=== PATIENT | female | born 1965 | race Caucasian/White ===

== ENCOUNTER 2024-01-17 06:45 | Day surgery (SDC) | payer MEDICARE, MEDICAID ==
[~2024-01-17] VITALS: Ht 160 cm; Wt 123.2 kg
[~2024-01-17 06:45] MED LIST: RINGERS SOLUTION,LACTATED 1,000 ML IV ONE
[2024-01-17] MEDS ORDERED: RINGERS SOLUTION,LACTATED 1,000 ML IV ONE (06:50)
[2024-01-17 08:38] LABS: BASOPHILS % (AUTO) 1.3 % (0.0-2.0); EOSINOPHILS % (AUTO) 1.6 % (1.0-6.0); HEMATOCRIT 37.7 % (36-46); HEMOGLOBIN 12.5 g/dL (12.0-16.0); LYMPHOCYTES % (AUTO) 32.9 % (22.0-44.0); MEAN CORPUSCULAR HEMOGLOBIN 30.4 pg (26.0-34.0); MEAN CORPUSCULAR HGB CONC 33.1 G/dL (31.0-37.0); MEAN CORPUSCULAR VOLUME 92 fL (80-100); MONOCYTES # (AUTO) 1.1 K/uL (0.1-1.0); MONOCYTES % (AUTO) 12.4 % (2.0-9.0); NEUTROPHILS # (AUTO) 4.7 K/uL (1.8-7.7); NEUTROPHILS % (AUTO) 51.8 % (40.0-70.0); PLATELET COUNT (AUTO) 291 K/uL (150-450); RED CELL DISTRIBUTION WIDTH 13.7 % (11.5-14.5); WHITE BLOOD COUNT (AUTO) 9.1 K/uL (4.5-11.0)
[2024-01-17 08:46] LABS: ANION GAP 9 mmol/L (8-16); CALCIUM, TOTAL 9.3 mg/dL (8.8-10.5); CARBON DIOXIDE 26 mmol/L (22-29); CHLORIDE 105 mmol/L (98-107); CREATININE 0.69 mg/dL (0.60-1.30); GLOMERULAR FILTR. RATE CALC > 60 mL/min (>60); GLUCOSE,RANDOM 98 mg/dL (70-110); POTASSIUM 3.9 mmol/L (3.5-5.1); SODIUM SERUM 140 mmol/L (136-145); UREA NITROGEN, BLOOD 15 mg/dL (7-18)
[2024-01-17 08:52] LABS: ALANINE AMINOTRANSFERASE 31 U/L (12-78); ALBUMIN 3.4 g/dL (3.4-5.0); ALKALINE PHOSPHATASE 102 U/L (46-116); ASPARTATE AMINOTRANSFERASE 18 U/L (15-37); BILIRUBIN,TOTAL 0.2 mg/dL (0.1-1.0); TOTAL PROTEIN, SERUM 7.6 g/dL (6.4-8.2)
[2024-01-17 08:55] LABS: PROTHROMBIN TIME 10.2 SEC (9.4-11.6)
[2024-01-17] MEDS ORDERED: CALC60CR6 TP (09:16)
[2024-01-17] MEDS ORDERED: DOCU250C99 PO (09:16)
[2024-01-17] MEDS ORDERED: TOPI200T16 PO (09:16)
[2024-01-17] MEDS ORDERED: OLAN15TA21 PO (09:16)
[2024-01-17] MEDS ORDERED: ACET325S20 PR (09:16)
[2024-01-17] MEDS ORDERED: MULT200T12 PO (09:16)
[2024-01-17] MEDS ORDERED: APRE30TA5 PO (09:16)
[2024-01-17] MEDS ORDERED: [UNRECOGNIZED DRUG - CODE] TP (09:16)
[2024-01-17] MEDS ORDERED: NYST30CR9 TP (09:16)
[2024-01-17] MEDS ORDERED: IBUP-45 PO (09:16)
[2024-01-17] MEDS ORDERED: OLAN7.5T18 PO (09:16)
[2024-01-17] MEDS ORDERED: CHOL500013 PO (09:16)
[2024-01-17] MEDS ORDERED: HALO10TA21 PO (09:16)
[2024-01-17] MEDS ORDERED: SOLI5 PO (09:16)
[2024-01-17] MEDS ORDERED: MELA5TAB40 PO (09:16)
[2024-01-17] MEDS ORDERED: MIDAZOLAM HCL 5 MG/ML VIAL ONE ×2 (10:05→10:22)
== END 2024-01-17 10:30 | disposition home or self-care (01) ==
LOC: SURGERY 06:45
PROVIDERS: ATTEND Dentist General Practice
DX: K05.30 Chronic periodontitis, unspecified (principal); Z53.8 Procedure and treatment not carried out for other reasons; R05.9 Cough, unspecified; I70.0 Atherosclerosis of aorta; K02.9 Dental caries, unspecified; J98.11 Atelectasis; F84.0 Autistic disorder
CPT/HCPCS: 71045; 80053; 85025; 85610; 85730; 36415; 93005; J2250; J7120